=== PATIENT | male | born 1995 | race African-American/Black ===

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

== ENCOUNTER 2017-10-07 16:50 | Emergency (ER) | payer OTHER ==
[~2017-10-07] VITALS: Ht 190.5 cm; Wt 61.4 kg
[~2017-10-07 16:50] MED LIST changes: +OLAN5TAB40 PO; -OLAN5Z PO
[2017-10-07] MEDS: IBUPROFEN 600 MG TABLET PO ONE ×2 (18:47→19:13)
[2017-10-07 19:35] VITALS: BP 112/64
== END 2017-10-07 20:14 | disposition home or self-care (01) ==
LOC: EMS 16:51
DX: S20.211A Contusion of right front wall of thorax, initial encounter (principal); F12.90 Cannabis use, unspecified, uncomplicated; V49.9XXA Car occupant (driver) (passenger) injured in unspecified traffic accident, initial encounter; Y93.89 Activity, other specified; Y92.89 Other specified places as the place of occurrence of the external cause; Y99.8 Other external cause status
CPT/HCPCS: 99284

== ENCOUNTER 2021-06-04 09:42 | Emergency (ER) | payer OTHER ==
[~2021-06-04] VITALS: Ht 190.5 cm; Wt 60.0 kg
[2021-06-04 11:42] LABS: APPEARANCE,URINE CLEAR (CLEAR); BILIRUBIN,URINE NEGATIVE (NEGATIVE); GLUCOSE, URINE (UA) NEGATIVE (NEGATIVE); KETONES,URINE TRACE mg/dL (NEGATIVE); LEUKOCYTE ESTERASE ,URINE MODERATE (NEGATIVE); NITRATE,URINE NEGATIVE (NEGATIVE); OCCULT BLOOD,URINE TRACE (NEGATIVE); PH,URINE 5.5 (5.0-8.0); PROTEIN,URINE NEGATIVE (NEGATIVE); SPECIFIC GRAVITIY, URINE 1.022 (1.003-1.030); UROBILINOGEN,URINE <=1.0 mg/dL (<=1.0)
[2021-06-04 11:59] LABS: RBC,URINE 0-2 /HPF (0-2); WBC,URINE 26-50 /HPF (0-5)
[2021-06-04 12:00] LABS: BACTERIA,URINE Few /HPF (None Seen); SQUAMOUS EPITHELIAL CELL,UR Few /LPF (None Seen)
[2021-06-04 12:08] VITALS: BP 125/70
== END 2021-06-04 13:09 | disposition home or self-care (01) ==
LOC: EMS 09:45
DX: S30.0XXA Contusion of lower back and pelvis, initial encounter (principal); F32.9 Major depressive disorder, single episode, unspecified; V49.9XXA Car occupant (driver) (passenger) injured in unspecified traffic accident, initial encounter; Y93.89 Activity, other specified; Y92.89 Other specified places as the place of occurrence of the external cause; Y99.8 Other external cause status
CPT/HCPCS: 72131; 81001; 87086; 99284

== ENCOUNTER 2021-10-24 23:52 | Emergency (ER) | payer OTHER ==
[~2021-10-24] VITALS: Ht 190.5 cm; Wt 61.4 kg
[2021-10-25 00:02] VITALS: BP 116/59
== END 2021-10-25 01:19 | disposition left against medical advice (07) ==
LOC: EMS 23:53
DX: Z53.21 Procedure and treatment not carried out due to patient leaving prior to being seen by health care provider (principal)